=== PATIENT | male | born 2005 | race Two or more races ===

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

== ENCOUNTER 2024-04-23 17:25 | Emergency (ER) | payer MEDICAID ==
[~2024-04-23] VITALS: Ht 177.8 cm; Wt 81.8 kg
[2024-04-23] MEDS: NALOXONE HCL 0.4 MG/ML VIAL IV ONE (18:05)
[2024-04-23] MEDS: ONDANSETRON HCL 4 MG/2 ML VIAL IV ONE (18:05)
[2024-04-23 18:36] LABS: Basophils # (auto) 0 10 ^3/uL (0-0.2); Basophils % (auto) 0.1 % (0.0-2.0); Eosinophils # (auto) 0 10 ^3/uL (0-0.8); Hematocrit 42.7 % (41.0-53.0); Hemoglobin 14.6 g/dL (13.5-17.5); Lymphocytes # (auto) 1.5 10 ^3/uL (0.4-5.4); Lymphocytes % (auto) 7.2 % (10.0-50.0); Mean Corpuscular Hemoglobin 30.6 pg (28.0-32.0); Mean Corpuscular Hgb Conc. 34.1 g/dL (32.0-36.0); Mean Corpuscular Volume 89.8 fL (80.0-100.0); Monocytes % (auto) 9.6 % (0.0-12.0); Neutrophils # (auto) 17.5 10 ^3/uL (1.6-8.6); Neutrophils % (auto) 83.1 % (37.0-80.0); Nucleated Red Blood Cells % 0.1 %; Red Blood Cells 4.76 10^6/uL (4.5-5.90); White Blood Cell 21.1 10^3/uL (4.4-10.8)
[2024-04-23 18:45] LABS: Chloride 104 mmol/L (98-107); Potassium 3.8 mmol/L (3.5-5.1); Sodium 136 mmol/L (136-145)
[2024-04-23 18:46] LABS: Anion Gap 8 (5-15); Calcium 9.4 mg/dL (8.5-10.1); Carbon Dioxide 24 mmol/L (20-30)
[2024-04-23 18:51] LABS: Blood Urea Nitrogen 17 mg/dL (9-23); Glucose 147 mg/dL (74-106)
[2024-04-23 18:52] LABS: Blood Alcohol 4.1 mg/dL (<10)
[2024-04-23 19:30] VITALS: BP 134/74; PULSE 120; RESP 20; TEMP 99.4; O2SAT 95
[2024-04-23] MEDS: NALOXONE HCL 1MG/ML 2ML SYRINGE IV ONE (20:41)
[2024-04-23] MEDS ORDERED: AZIT1POW PO (21:04)
[2024-04-23 21:48] LABS: Amphetamine Screen, Urine Pos (NEGATIVE); Barbiturate Scree,Urine Neg (NEGATIVE); Benzodiazephine Screen, Urine Neg (NEGATIVE); Cannabinoid Screen, Urine Pos (NEGATIVE); Cocaine Screen, Urine Neg (NEGATIVE); Opiate Scree,Urine Neg (NEGATIVE); Phencyclidine Screen, Urine Neg (NEGATIVE)
== END 2024-04-23 21:36 | disposition home or self-care (01) ==
LOC: EDBD 17:25 → ER 17:25
DX: F11.929 Opioid use, unspecified with intoxication, unspecified (principal); J40 Bronchitis, not specified as acute or chronic; F12.10 Cannabis abuse, uncomplicated; F15.10 Other stimulant abuse, uncomplicated; Z91.030 Bee allergy status; Z91.013 Allergy to seafood
CPT/HCPCS: 36415; 71045; 80048; 80307; 80320; 85025; 96374; 96375; 96376; 99284; J2310; J2405